=== PATIENT | male | born 1980 ===

== ENCOUNTER 2022-07-22 19:00 | Outpatient (CLI) | payer OTHER, SELFPAY ==
--- NOTE | 2022-08-10 12:44 | W.PM.SLEEP ---
Sleep Study Details Details Interpreting Provider: Darron Lake MD Date of Sleep Study: 07/22/22 Sleep Study Details: STUDY TYPE:? Home ? BMI:? 32.5 ORDERING PROVIDER:? Harsh INDICATION:? Concerns about sleep apnea ? SLEEP SUMMARY:? 390 minutes monitored RESPIRATORY SUMMARY:? AHI 27.3, supine AHI 50.9, left lateral AHI 1.1, right lateral AHI 32.3 Low oxygen 83 2.7% of study oxygen less than 90% PERIODIC LIMB MOVEMENTS OF SLEEP:? Not recorded CARDIAC:? 57-212, mean 70.8 IMPRESSION:? Moderate obstructive sleep apnea with supine position dependency Tachycardia with a high heart rate of 212 was noted during the study. Card further cardiac evaluation may be indicated RECOMMENDATION: See above-further cardiac evaluation may be indicated for tachycardia AutoSet CPAP at 4-17 versus an in-lab titration study is recommended for the sleep apnea
== END 2022-07-22 19:01 | disposition home or self-care (01) ==
LOC: SLEEP 08-09 13:02
PROVIDERS: Visit Provider Otolaryngology
DX: G47.33 Obstructive sleep apnea (adult) (pediatric) (principal)
CPT/HCPCS: 95806